=== PATIENT | female | born 1990 | race Asian ===

== ENCOUNTER 2024-12-09 07:14 | Emergency (ER) | payer OTHER, SELFPAY ==
--- NOTE | ~2024-12-09 | XR_ITS ---
CLINICAL HISTORY: low back pain, injury 3 views lumbar spine Comparison: None provided Findings: Normal alignment. No acute fractures or dislocation. No significant degenerative change. There is mild lumbar spine dextroscoliosis. There is a IUD within the pelvis IMPRESSION: Mild lumbar spine dextroscoliosis IUD within the pelvis This document has been electronically signed by: Perfecto Lilly MD on 12/09/2024 08:37:16
[2024-12-09 07:17] VITALS: BP 134/67; PULSE 75; RESP 18; TEMP 36.4; O2SAT 99; BMI 21.7
--- OUTSIDE RECORDS SUMMARY | 2024-12-09 07:35 | XMS_ITS | Clinical Summary ---
Author Organization [facility] Address [address] [place] [phone] Phone Care Team Providers Care Icing And Glaze Maker Name Role Phone Cathi Durant MD Primary Care Provider [phone] Allergies No known active allergies Medications erythromycin (ROMYCIN) ophthalmic ointment Place 0.5 inches into the right eye 3 (three) times a day. 3.5 g 10/13/2019 Active Social History Tobacco Use Types Packs/Day Years Used Date Smoking Tobacco: Never Alcohol Use Standard Drinks/Week Comments Never 0 (1 standard drink = 0.6 oz pur e alcohol) Education Answer Date Recorded Are you interested in more education? Not on tristin e 08/06/2022 Are you concerned about learning? Not on file 08/06/2022 No 08/06/2022 No 08/06/2022 Digital Access Answer Date Recorded No 09/07/2022 No 09/07/2022 Reliable internet access at home? Not on file 09/07/2022 Device with a working camera? Not on file Comments Unknown Sex and Gender Information Value Date Recorded Sex Assigned at Female 11/15/2019 1:11 PM EDT Legal Sex Female 10:21 PM EDT Gender Identity Female 11/15/2019 1:11 PM EDT Sexual Orientation Straight 11/15/2019 1: 11 PM EDT Last Filed Vital Signs Vital Sign Reading Time Taken Comments Blood Pressure 116/70 10/12/2019 10:24 PM EDT Pulse 84 10/12/2019 10:24 PM EDT Temperature 36.9 C (98.4 F) 10/12/2019 10:24 PM EDT Respiratory Rate 22 10/12/2019 10:24 PM EDT Oxygen Saturation 100% 10/12/2019 10:24 PM EDT Inhaled Oxygen Concentration - - Weight 71.2 kg (157 lb) 10/12/2019 10:24 PM EDT Height 160 cm (5' 3 ) 10/12/2019 10:24 PM EDT Body Mass Index 27.81 10/12/2019 10:24 PM EDT Plan of Treatment Not on file Medical Devices Not on file [facility] Care Teams Icing And Glaze Maker Relationship Specialty Start Date End Date Cathi Durant MD [address] [place] [address] [email or web address] PCP - General Family Medicine 10/12/19 Additional Source Comments The information contained in this document represents components of the legal health record. It is not the complete legal health record.[facility]
--- NOTE | 2024-12-09 07:42 | PC.NURSE ---
Pt reports lumbar-sacral pain, worse with standing upright and walking; denies pain with forward flexion; denies pain radiating into arms or legs; pt not currently taking OTC medication for sx's
--- NOTE | 2024-12-09 08:03 | ED_ITS ---
HPI - General Adult General Chief complaint: Back Pain/Injury Stated complaint: Back Pain Work Injury Time Seen by Provider: 12/09/24 08:00 Source: patient Mode of arrival: ambulatory Limitations: no limitations History of Present Illness ED Provider: Kiesha Riddle PA-C HPI narrative: Patient is a 34 year old assigned female at with no reported medical history presenting to the emergency department today with low back pain. 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 Patient denies any other complaints at this time. Related Data Previous Rx's ?Medication ?Instructions ?Recorded cyclobenzaprine 5 mg tablet 5 mg PO TID PRN muscle spa sm 7 12/09/24 days #21 tabs Allergies Allergy/AdvReac Type Severity Reaction Status Date / Time No Known Allergies Allergy Verified 12/09/24 07:20 Review of Systems Constitutional: Constitutional: Reports as per HPI Eyes: Eyes: Reports as per HPI ENT: Reports as per HPI Cardiovascular: Cardiovascular: Reports as per HPI Respiratory: Respiratory: Reports as per HPI Gastrointestinal: Gastrointestinal: Reports as per HPI Genitourinary: Genitourinary: Reports as per HPI Musculoskeletal: Musculoskeletal: Reports as per HPI Integumentary/Breasts: Skin/Breast: Reports as per HPI Neurologic: Reports as per HPI Psychiatric: Psychiatric: Reports as per HPI Endocrine: Endocrine: Reports as per HPI Hematologic/Lymphatic: Hematologic/Lymphatic: Reports as per HPI Allergic/Immunologic: Allergic/Immunologic: Reports as per HPI [facility] Past Medical History Attestation statement: The following information was validated with the patient. Source: old records reviewed and nursing notes reviewed Social History Social History Advance Directives: Yes Advance Directives Information Provided: Yes Advance Directives on File: No Patient : No Physical Exam ED Vital Signs: Vital Signs - 24 hr 12/09/24 07:17 12/09/24 08:54 Temperature 97.6 F 97.6 F Pulse Rate 75 70 Respiratory Rate 18 18 Blood Pressure 134/67 129/66 Pulse Oximetry 99 99 Oxygen Delivery Method Room Air Room Air BMI result Body Mass Index 21.7 Const General: cooperative, no acute distress, alert and awake Nutritional Appearance: well nourished Orientation/consciousness: patient oriented x3 HENMT Head: Yes normal to inspection and Yes atraumatic Ears: hearing grossly normal bilaterally and external ears normal General nose exam: Normal external nose present, no nasal discharge noted and no epistaxis Face and sinus: Yes normal facial exam, No abrasion and No laceration Mouth: Normal oral and palatal mucosa present, no drooling and no muffled voice Eyes General: appearance normal, both eyes and all related structures Periorbital: periorbital findings normal Eyelids: Yes eyelids normal Conjunctivae: conjunctivae normal Pupils: Equal, round and reactive pupils present EOM: EOMs intact bilaterally Neck Neck: Yes normal visual inspection and Yes full ROM Resp Effort & Inspection: normal respiratory effort and able to speak in complete sentences Neuro General: patient oriented x3, moves all extremities and CN's II-XI intact bilate rally Cranial nerves: Yes Equal, round and reactive pupils present Cognition (Neuro): normal cognition Extrem General: Yes normal to inspection, Yes full ROM and Yes capillary refill normal Psych Appearance: grossly normal Mental Status: mental status grossly normal Affect: normal affect Attitude: cooperative Thought process: Normal thought process present Thought content: Normal thought content present Insight: Good insight present (Psych) Medications Administered Discontinued Medications Generic Name Dose Route Start Last Admin Trade Name Freq PRN Reason Stop Dose Admin Cyclobenzaprine HCl 5 mg 12/09/24 08:41 12/09/24 08:56 Cyclobenzaprine Hcl 5 Mg Tablet PO 12/09/24 08:42 Not Given ONCE ONE Medical Decision Making Medical Decision Making [facility] Narrative: Patient is a 34 year old assigned female at with no reported medical history presenting to the emergency department today with low back pain. Patient's physical exam was unremarkable. Patient's lumbar spine x-ray showed no acute process. I explained my physical exam findings as well as all test results to the patient. I answered all questions asked by the patient. I stressed the importance of the patient taking her medication as directed (either prescribed or as the over the counter packaging recommends). I stressed the importance of the patient following up with her primary care provider and given this was a work place injury - work connection. I stressed the importance of the patient returning to the emergency department immediately if her symptoms were to worsen or if she were to develop any dizziness, shortness of breath, difficulty breathing, chest pain, blurry vision, loss of vision, nausea, vomiting, abdominal pain, fever, chills, back pain, or any other complaints. Patient verbalized agreement and understanding with this treatment plan and discharge. Differential Diagnosis Differential Diagnoses: The differential diagnosis associated with the presentation includes Low back pain Low back sprain Admission/Observation Consideration of admission/observation: Escalation of care including admission/observation considered Patient would have been admitted to the hospital had her work up had any findin gs where hospital admission was appropriate and her clinical presentation warranted hospital admission. Independent Interpretation I performed an independent interpretation of an: Plain X-Ray Interpretation: My interpretation is in agreement with the radiologist's impression of this imaging study. CLINICAL HISTORY: low back pain, injury 3 views lumbar spine Comparison: None provided Findings: Normal alignment. No acute fractures or dislocation. No significant degenerative change. There is mild lumbar spine dextroscoliosis. There is a IUD within the pelvis IMPRESSION: Mild lumbar spine dextroscoliosis IUD within the pelvis This document has been electronically signed by: Perfecto Lilly MD on 12/09/2024 08:37:16 Dictated By: Perfecto Lilly MD Signed By: Electronically signed by Perfecto Lilly MD 12/09/24 [id number] Radiology Impression Discussion of test interpretation with radiology: I have reviewed the radiologist's reading. Prescription Management I considered prescription management with: Pain Medication (patient prescribed pain medicine) Discharge Plan Discharge Clinical Impression: Strain of lumbar region Patient Disposition: Home, Self-Care Instructions: Back Pain (ED) Additional Instructions: Your x-ray showed no acute process / break. Given this was a work place injury - you should follow up with the work connection team. IF you are prescribed home medications and/or you are taking over the counter medications at home - it is very important you continue to do so as prescribed / directed unless told otherwise. Follow up with your primary care provider. Return to the emergency department immediately if your symptoms worsen or if you develop any numbness, tingling, dizziness, shortness of breath, difficulty breathing, chest pain, blurry vision, loss of vision, nausea, vomiting, abdominal pain, fever, chills, back pain, or any other complaints. Please see the information below about our Patient Portal. If you are not yet enrolled in the [facility] Patient Portal, you will receive an enrollment email invitation following your visit to any [facility] setting. You may also self-enroll in the Patient Portal by visiting our website: [email or web address] The following information is required to access the Patient Portal: - Your [facility] Medical Record Number - Your personal home email address (must match what is in your electronic medical record, Registration staff can assist with this) - Name - Date of Capabilities of the Patient Portal: - Message some providers - View upcoming appointments - Access your health summary, medical history, and visit history - View current conditions and allergies - View procedure and lab results - View your medications, including guidelines, side effects, and precautions - Complete pre-appointment questionnaires requested by your provider - Ready summary reports of your office visits and procedures To access the Patient Portal Mobile [employer], follow these directions: - Search [employer] in the [employer] Store or [employer] - Download the [employer] - Search for [facility] - Enter your login/password Prescriptions: New cyclobenzaprine 5 mg tablet 5 mg PO TID PRN (Reason: muscle spasm) 7 Days Qty: 21 0RF Referrals: Work Connection [Provider Group] Referral Note: Given this was a work place injury, call to establish and follow up with the work connection team. Noe Srinivasan DO [Primary Care Provider, Internal Medicine] Stand Alone Forms: Work/School Release Interventions: ED Discharge Assessment Last Done: 12/09/24 08:54 Discharge Date/Time: 12/09/24 08:55 Print Language: Slovak
[2024-12-09 08:54] VITALS: BP 129/66; PULSE 70; RESP 18; TEMP 36.4; O2SAT 99
== END 2024-12-09 08:55 | disposition home or self-care (01) ==
PROVIDERS: Emergency Provider Emergency Medicine; PCP Family Medicine
DX: S39.012A Strain of muscle, fascia and tendon of lower back, initial encounter (principal); X50.1XXA Overexertion from prolonged static or awkward postures, initial encounter; X50.9XXA Other and unspecified overexertion or strenuous movements or postures, initial encounter; Y93.9 Activity, unspecified; Y92.9 Unspecified place or not applicable; Y99.0 Civilian activity done for income or pay
CPT/HCPCS: 72100; 99283

== ENCOUNTER → 2024-12-09 08:17 | Outpatient (BNV) | payer OTHER, SELFPAY | PROVIDERS: Emergency Provider Emergency Medicine; PCP Family Medicine; Visit Provider Radiology Diagnostic Radiology | DX: S39.92XA Unspecified injury of lower back, initial encounter (principal); M54.50 Low back pain, unspecified | CPT/HCPCS: 72100 ==

== ENCOUNTER → 2024-12-13 09:01 | Outpatient (BNVA) | payer OTHER, SELFPAY | PROVIDERS: PCP Family Medicine; Visit Provider Emergency Medicine | DX: Z13.89 Encounter for screening for other disorder (principal) | CPT/HCPCS: 99202 ==